=== PATIENT | male | born 1950 | race African-American/Black ===

== ENCOUNTER → 2017-11-09 | Outpatient (CLI) | payer MEDICARE ==
--- NOTE | 2017-11-09 12:14 | Diagnostic Imaging Report ---
EXAM: CT Chest WITHOUT contrast INDICATION: \[id number] \[id number] \S\LATERAL LOWER LUNG ATELECTASIS COMPARISON: None TECHNIQUE: Chest was scanned utilizing a multidetector helical scanner from the lung apex through the level of the adrenal glands without administration of IV contrast. Absence of intravenous contrast decreases sensitivity for detection of lymphadenopathy and vascular pathology. Coronal and sagittal reformations were obtained. Routine protocol was performed. IV CONTRAST: None COMPLICATIONS: None RADIATION DOSE: Total DLP: 443.64 mGy*cm Estimated effective dose: (DLP x 0.014 x size factor) mSv CTDIvol has been reviewed. It is below the limits set by the Radiation Protocol Committee (RPC). FINDINGS: LINES/ TUBES: None. LUNGS AND AIRWAYS: Right upper lobe calcified granuloma (series 3, image 44). Bibasilar consolidations with air bronchograms. Left upper lobe linear atelectasis/scarring. Airways are normal. PLEURA: Small left pleural effusion. HEART AND MEDIASTINUM: 1.3 cm hypodense left thyroid lobe nodule. No mediastinal, hilar or axillary lymphadenopathy. The heart is enlarged. Small amount of pericardial effusion. Distended pulmonary artery measures 4.1 cm, suggestive of pulmonary hypertension. Dilated ascending thoracic aorta measuring 4.2 cm at the level of the right pulmonary artery. Severe atherosclerotic calcification of coronary arteries. Median sternotomy wires. UPPER ABDOMEN: Unremarkable. BONES: Old left-sided rib fracture deformities. There is also posteriolateral right eighth rib old fracture deformity. SOFT TISSUES: Mildly elevated right hemidiaphragm. IMPRESSION: 1. Cardiomegaly with trace pericardial effusion. 2. Bibasilar consolidations with air bronchograms, representing atelectasis and/or pneumonia in the appropriate setting. 3. Small left pleural effusion. 4. Left thyroid lobe nodule. Recommend correlation with thyroid ultrasound. Signed by: Dr. Rad Martin MD on 11/09/2017 12:10 PM
== END ==
LOC: CT 08:02
PROVIDERS: ATTEND Internal Medicine
DX: J98.11 Atelectasis (principal)
CPT/HCPCS: 71250